=== PATIENT | male | born 2000 | race Caucasian/White ===

== ENCOUNTER 2022-11-12 04:54 | Emergency (ER) | payer SELFPAY ==
[2022-11-12 05:36] VITALS: BMI 29.7
[2022-11-12] MEDS ORDERED: ACETAMINOPHEN 325 MG TABLET (FP) PO ONE (06:06)
[2022-11-12] MEDS ORDERED: ACETAMINOPHEN 325 MG TABLET (FP) ONE (06:11)
[2022-11-12] MEDS: ACETAMINOPHEN 500 MG TABLET (FP) PO ONE ×2 (06:31→06:42)
[2022-11-12 07:01] LABS: BASO % 1.3 % (0-2.0); EOS % 2.7 % (0-4.5); HEMOGLOBIN 14.4 GM/dL (11.7-16.9); LYMPH % 31.8 % (8-40); MCH 30.8 pg (25.7-33.7); MCHC 34.3 g/dl (32.0-35.9); MEAN CELL VOLUME 89.9 fl (80-96); MEAN PLT VOLUME 10.2 fl (7.5-11.1); MONO % 7.2 % (3.8-10.2); PLATELET COUNT 218 10^3/uL (134-434); RBC 4.67 M/mm3 (4.00-5.60); RDW 12.9 % (11.9-15.9)
[2022-11-12 07:09] LABS: INR 1.12 (0.83-1.09); PROTHROMBIN TIME (PATIENT) 12.9 SEC (9.7-13.0)
[2022-11-12 07:12] LABS: ACTIVATED PTT 28.9 SECONDS (25.2-36.5)
[2022-11-12 07:25] LABS: ALBUMIN 4.4 g/dl (3.4-5.0); BLOOD UREA NITROGEN 6.2 mg/dL (7-18); CALCIUM 8.4 mg/dL (8.5-10.1); MAGNESIUM 2.2 mg/dL (1.8-2.4)
[2022-11-12 07:28] LABS: CREATININE 0.6 mg/dL (0.55-1.3)
[2022-11-12 07:30] LABS: BILIRUBIN,TOTAL 0.3 mg/dL (0.2-1); TOT PROT 7.9 g/dl (6.4-8.2)
[2022-11-12 08:07] LABS: PH,URINE 5.5 (5.0-8.0); URINE APPEARANCE CLEAR; URINE BILIRUBIN NEGATIVE (NEGATIVE); URINE COLOR YELLOW; URINE GLUCOSE (UA) NEGATIVE (NEGATIVE); URINE KETONE NEGATIVE (NEGATIVE); URINE LEUK ESTERASE NEGATIVE (NEGATIVE); URINE NITRITE NEGATIVE (NEGATIVE); URINE PROTEIN NEGATIVE (NEGATIVE); URINE UROBILINOGEN 0.2 mg/dL (0.2-1.0)
[2022-11-12 09:32] LABS: OPIATES, URI NEGATIVE (NEGATIVE); PHENCYCLIDINE,URINE NEGATIVE (NEGATIVE)
[2022-11-12 09:33] LABS: URINE AMPHETAMINES NEGATIVE (NEGATIVE)
[2022-11-12 09:38] LABS: COCAINE, UR NEGATIVE (NEGATIVE); METHADONE, UR NEGATIVE (NEGATIVE); URINE BARBITURATES NEGATIVE (NEGATIVE); URINE BENZODIAZEPINES NEGATIVE (NEGATIVE)
[2022-11-12 17:26] VITALS: BP 110/72; PULSE 75; RESP 18; TEMP 98.1
== END 2022-11-12 15:00 | disposition home or self-care (01) ==
LOC: JER 04:54
DX: R44.0 Auditory hallucinations (principal); R51.9 Headache, unspecified
CPT/HCPCS: 0241U-QW; 36415; 80053; 80307; 81003; 83735; 84439; 84443; 85025; 85610; 85730; 87086; 93005; 93010; 99284-25

== ENCOUNTER 2023-03-23 10:46 | Emergency (ER) | payer SELFPAY ==
[2023-03-23 11:13] VITALS: BP 99/59; PULSE 66; RESP 18; TEMP 98.4; BMI 19.2
[2023-03-23] MEDS ORDERED: IBUPROFEN 600 MG TABLET (FP) PO ONE ×2 (11:45→11:47)
== END 2023-03-23 12:16 | disposition home or self-care (01) ==
LOC: JERFT 10:46
DX: M54.2 Cervicalgia (principal); M25.511 Pain in right shoulder; M79.601 Pain in right arm
CPT/HCPCS: 99282-25

== ENCOUNTER 2024-02-26 18:00 | Emergency (ER) | payer SELFPAY ==
[2024-02-26 18:06] VITALS: BP 109/64; PULSE 85; RESP 18; TEMP 98.7; BMI 19.5
[2024-02-26] MEDS ORDERED: IBUPROFEN 600 MG TABLET (FP) PO ONE (19:30)
[2024-02-26] MEDS: IBUPROFEN 600 MG TABLET (FP) PO ONE (19:31)
== END 2024-02-26 20:12 | disposition home or self-care (01) ==
LOC: JER 18:00 → JERFT 18:00
DX: S96.911A Strain of unspecified muscle and tendon at ankle and foot level, right foot, initial encounter (principal); X50.1XXA Overexertion from prolonged static or awkward postures, initial encounter; Y93.66 Activity, soccer
CPT/HCPCS: 73610-TC-RT-FY; 73630-TC-RT-FY; 99283-25